=== PATIENT | female | born 1945 | race Caucasian/White ===

== ENCOUNTER 2016-09-29 06:59 | Observation (INO) | payer OTHER ==
--- NOTE | 2016-09-29 07:20 | EDPHY ---
H & P Time Seen by Provider: 09/29/16 07:19 HPI/ROS: CHIEF COMPLAINT: left arm/left leg weakness HISTORY OF PRESENT ILLNESS: Patient is a 71-year-old female status post CVA in 2007 (No blood thinners) that presents to the emergency department with left arm and left leg weakness. The patient thinks her symptoms started at approximately 6:00 a.m.. She initially nose left arm weakness. This slowly progressed to mild left lower extremity weakness. She states it is hard to tell because I was anxious. She took initial aspirin at the onset of her symptoms. She then took a 2nd aspirin. At this time she feels much better. She states her arm and leg numbness has improved. Her leg symptoms have resolved. She does state that her arm feels a little funny. She states she may have had some difficulty with speech but this is resolved. She has no headache or neck pain. Patient reports that she had a large workup for stroke in 2007 but this was done in [place]. They kept in the hospital for 5 days. She had numerous imaging studies. She was told that she had narrowing of the blood vessel in her neck. REVIEW OF SYSTEMS: My complete review of systems is negative except as mentioned in the HPI. Past Medical/Surgical History: Includes CVA. She denies hypertension, high cholesterol diabetes. Social history: The patient does not smoke. She now lives in [place]. Family history: Her father has diabetes and a CVA. Smoking Status: Never smoked Physical Exam: Vitals noted GENERAL: Well-appearing, in no acute distress, alert. HEENT: Eyes normal to inspection, normal pharynx, no signs of dehydration. NECK: No thyromegaly, no lymphadenopathy, supple. RESPIRATORY: Clear to auscultation bilaterally, no rales, rhonchi or wheezing. CVS: Regular rate and rhythm, no rubs, murmurs, or gallops. ABDOMEN: Soft, nontender, nondistended, no organomegaly. BACK: Normal to inspection, no CVA tenderness. SKIN: Normal color, no rash, warm, dry. No pallor. EXTREMITIES: No pedal edema, no calf tenderness, no Homans sign or cords, no joint swelling. NEURO/PSYCH: Higher functions: Alert and Oriented x3. Normal speech and cognition. Normal mood and affect. Cranial nerves: Normal as tested. Cerebellar: Normal as tested. Good finger to nose, good [id number], normal gait. Peripheral exam: Normal motor exam. Normal sensation. Normal reflexes. NIHSS: 0 at 7:25am Constitutional: Initial Vital Signs Temperature (C) 36.3 C 09/29/16 07:03 Heart Rate 102 H 09/29/16 07:03 Respiratory Rate 16 09/29/16 07:03 Blood Pressure 137/105 H 09/29/16 07:03 O2 Sat (%) 97 09/29/16 07:03 O2 Delivery Mode Room Air O2 (L/minute) 2 Allergies/Adverse Reactions: No Known Allergies Allergy (Unverified 09/29/16 07:06) Home Medications: Medication Instructions Recorded Aspirin 81mg (*) 09/29/16 Brimonidine 0.15% 09/29/16 [facility] 09/29/16 Medical Decision Making - Diagnostics EKG Interpretation: EKG shows normal sinus rhythm, at 101, normal axis, normal intervals. There are no ST or T-wave abnormalities. ED Course/Re-evaluation: In the emergency department I discussed possible etiologies with the patient. An IV was placed. Laboratory studies were obtained. I discussed the plan with the patient and answered her questions. I-STAT sodium 139, potassium 4.1, chloride 102, glucose 105, BUN 23, creatinine 0.9, hematocrit 40 741: I was called back into the patient's room because she started to have some slurred speech per the nurse. I re-evaluated the patient. Patient states that she feels as though her tongue is going numb. She has more numbness in her left upper extremity. NEURO/PSYCH: Higher functions: Alert and Oriented x3. Slightly dysarthric. Normal cognition. Normal mood and affect. Cranial nerves: Normal as tested. Cerebellar: Normal as tested. Good finger to nose, good [id number]. Peripheral exam: Normal motor exam. Normal sensation. Normal reflexes. NIHSS: 1 (Mild-Mod dysarthria) Stroke alert called 755: The patient returns from noncontrast CT imaging. I rechecked the patient on return to the emergency department. She states that her arms and tongue are cande numb. No other focal deficits on exam. Awaiting for evaluation by Neurology. 757: Spoke with Dr. Castrejon from Neurology. After discussion evaluated the patient. 810: Received call from Dr. Ayala. CT non-contrast no hemorrhage or acute finding. 813: Pt taken to CT for angio studies. 817: Discussed the case with Dr. Castrejon. He feels the patient is not on a tPA candidate at this time. I agree with this finding. The patient is in CT angiogram. He is aware. I updated the patient has the findings thus far. I answered all her questions. CT angiogram clear please refer the dictated report by Dr. Jesús Ayala. There is no flow present with the proximal right vertebral artery to about C4 level where there appears to be feeling of the mid to distal right vertebral artery presumably from retrograde flow. Differential includes thrombus, dissection, congenital abnormality. There are abnormalities noted. I subsequently paged Neurology. I discussed the case with Dr. Washington. He recommends only aspirin at this point in the emergency department. He recommended MRI without contrast of the brain. Paged the hospitalist service for admission. Differential Diagnosis: My differential includes but is not limited to ischemic CVA, hemorrhagic CVA, dissection, aneurysm, ACS, acute DC, electrolyte abnormality, sugar abnormality - Data Points Laboratory Results: Laboratory Results 09/29/16 07:15 09/29/16 07:47 09/29/16 09/29/16 09/29/16 07:47 07:31 07:15 WBC 6.18 10^3/uL (3.80-9.50) RBC 4.57 10^6/uL (4.18-5.33) Hgb 15.2 g/dL (12.6-16.3) POC Hgb 13.6 gm/dL (12.3-15.9) Hct 43.8 % (38.0-47.0) POC Hct 40 % (35.5-47.5) MCV 95.8 fL (81.5-99.8) MCH 33.3 pg (27.9-34.1) MCHC 34.7 g/dL (32.4-36.7) RDW 12.4 % (11.5-15.2) Plt Count 251 10^3/uL (150-400) MPV 10.4 fL (8.7-11.7) Neut % (Auto) 56.1 % (39.3-74.2) Lymph % (Auto) 36.4 % (15.0-45.0) [place] % (Auto) 6.8 % (4.5-13.0) Eos % (Auto) 0.2 L % (0.6-7.6) Baso % (Auto) 0.2 L % (0.3-1.7) Nucleat RBC Rel Count 0.0 % (0.0-0.2) Absolute Neuts (auto) 3.47 10^3/uL (1.70-6.50) Absolute Lymphs (auto) 2.25 10^3/uL (1.00-3.00) Absolute Monos (auto) 0.42 10^3/uL (0.30-0.80) Absolute Eos (auto) 0.01 L 10^3/uL (0.03-0.40) Absolute Basos (auto) 0.01 L 10^3/uL (0.02-0.10) Absolute Nucleated RBC 0.00 10^3/uL (0-0.01) Immature Gran % 0.3 % (0.0-1.1) Immature Gran # 0.02 10^3/uL (0.00-0.10) PT 12.6 SEC (12.0-15.0) INR 0.95 (0.83-1.16) APTT 30.0 SEC (23.0-38.0) POC Sodium 139 mEq/L (134-144) Sodium 139 mEq/L (134-144) POC Potassium 4.1 mEq/L (3.3-5.0) Potassium 4.4 mEq/L (3.5-5.2) POC Chloride 102 mEq/L (96-108) Chloride 103 mEq/L (97-110) Carbon Dioxide 24 mEq/l (22-31) Anion Gap 12 mEq/L (8-16) POC BUN 23 mg/dL (7-23) BUN 22 mg/dL (7-23) Creatinine 0.9 mg/dL (0.6-1.0) POC Creatinine 0.9 mg/dL (0.6-1.2) Estimated GFR > 60 Glucose 102 H mg/dL (70-100) POC Glucose 105 H mg/dL (70-100) Calcium 10.0 mg/dL (8.5-10.4) Troponin I < 0.012 ng/mL (0-0.034) Point of Care Test Results: 09/29/16 07:31 POC Sodium 139 POC Potassium 4.1 POC Chloride 102 POC BUN 23 POC Creatinine 0.9 POC Glucose 105 H Departure - Departure Disposition: [facility] Acute Clinical Impression: Transient cerebral ischemia Qualifiers: Transient cerebral ischemia type: unspecified Qualifier Code: (G45.9) Transient cerebral ischemic attack, unspecified Condition: Good Referrals: NONE *PRIMARY CARE P,. [Primary Care Provider] - As per Instructions
--- NOTE | 2016-09-29 07:23 | CPEKG ---
Heart Rate: 101 RR Interval: 594 P-R Interval: 140 QRSD Interval: 76 QT Interval: 332 QTC Interval: 431 P Ringling: 75 QRS Ringling: 77 T Wave Ringling: 52 EKG Severity - OTHERWISE NORMAL ECG - EKG Impression: SINUS TACHYCARDIA Electronically Signed By: Ana Wick 29-Sep-2016 14:59:13
[2016-09-29 07:36] LABS: % IMMATURE GRANULYOCYTES 0.3 % (0.0-1.1); ABSOLUTE IMMATURE GRANULOCYTES 0.02 10^3/uL (0.00-0.10); ADD DIFF? NO; ADD MORPH? NO; ADD SCAN? NO; ATYPICAL LYMPHOCYTE FLAG 10 (0-99); FRAGMENT RBC FLAG 0 (0-99); HEMATOCRIT 43.8 % (38.0-47.0); HEMOGLOBIN 15.2 g/dL (12.6-16.3); LEFT SHIFT FLG 0 (0-99); LIPEMIA HEMOLYSIS FLAG 90 (0-99); MEAN CELL HEMOGLOBIN 33.3 pg (27.9-34.1); MEAN CELL HEMOGLOBIN CONCENTR. 34.7 g/dL (32.4-36.7); MEAN CELL VOLUME 95.8 fL (81.5-99.8); MEAN PLATELET VOLUME 10.4 fL (8.7-11.7); PLATELET CLUMPS FLAG 10 (0-99); PLATELET COUNT 251 10^3/uL (150-400); RED BLOOD CELL COUNT 4.57 10^6/uL (4.18-5.33); RED CELL DISTRIBUTION WIDTH 12.4 % (11.5-15.2)
[2016-09-29 07:42] LABS: INR 0.95 (0.83-1.16); PROTIME(PATIENT) 12.6 SEC (12.0-15.0)
[2016-09-29 08:04] LABS: ANION GAP 12 mEq/L (8-16); CARBON DIOXIDE 24 mEq/l (22-31); CHLORIDE 103 mEq/L (97-110); CREATININE 0.9 mg/dL (0.6-1.0); GLOMERULAR FILTRATION RATE > 60; GLUCOSE 102 mg/dL (70-100); POTASSIUM 4.4 mEq/L (3.5-5.2); SODIUM 139 mEq/L (134-144)
[2016-09-29] MEDS ORDERED: IOPAMIDOL (ISOVUE 370) 100 ML BTL IV ONE (08:14)
[2016-09-29 08:15] LABS: TROPONIN I < 0.012 ng/mL (0-0.034)
--- NOTE | 2016-09-29 08:17 | CT ---
CT Brain Without Contrast 0 749 hours History: Slurred speech with left-sided weakness. Stroke alert.. Technique: Axial computed tomographic images of the brain without contrast. Images were reconstruct ed down to 1.25 mm slice thickness. Dose reduction techniques were utilized. Findings: Ventricles, cisterns, and sulci are widened consistent with mild age-related atrophy. No h ydrocephalus, masses, midline shift/herniation, or subdural hematomas. No intraparenchymal hemorrhage or mass effect. Mild hypodensities are seen in the white matter of bilateral cerebral hemispheres. There is no acute peripheral cerebral infarct seen. Arteriosclerotic calcifications are noted associ ated with distal ICA in the parasellar location bilaterally. Bone windows demonstrate no displaced fractures. Air-fluid level is seen right maxillary sinus with mucous retention cyst inferior left maxillary sinu s. There is opacification of ethmoid air cells as well as hypoplastic frontal sinuses. Small amount o f fluid is also noted in the sphenoid sinus. The mastoid air cells are clear. Impression: 1. Mild age-related atrophy. 2. No hemorrhage, mass effect, or definite acute peripheral infarct. 3. Mild to moderate nonspecific hypodensities in the white matter of bilateral frontal and parietal l obes. Differential diagnosis includes microvascular ischemic disease, post-infectious/post-inflammato ry sequela, atypical demyelinating disease, or migraine-related sequela. Small white matter lacunar i nfarcts may also have this appearance. These findings were discussed by telephone with Dr. Ana Wick at 810 hrs.
--- NOTE | 2016-09-29 08:29 | PDCONSULT ---
Glass Checker Note: Telestroke Consult Demographics First Name Sonal Last Name Noun Date of 1945 Age: 71 Gender Female Referring Provider Dr Cardenas Time of return call (): 09/29/2016 07:59 Time Ready to Initiate Telemed Consult (): 09/29/2016 08:01 Consult Type Acute Stroke HPI Chief Complaint: left, numbness Additional History (Free Text): 71 yo woman, history of prior stroke with "stumbling" several years ago on daily aspirin 81 mg. She was awake this AM between 5 and 5:30 am when she felt numbness of the left arm. She was not having weakness or trouble walking. These symptoms improved (NIHSS0 on admit) and then returned in the ED. She has a history of some artery narrowing when evaluated in [facility] previously. Time of onset: 09/29/2016 05:00 Duration wax/wane [facility] Past Medical History: Cerebrovascular Accident, Hypertension Past Surgical History appendectomy, hernia repair Social History: non-smoker, occasional alcohol, no drugs, lives with spouse Medications: aspirin Exam SBP: 125 DBP: 82 Mental Status: awake, alert + oriented x 3, follows commands Language: no aphasia, no dysarthria Cranial Nerves extra ocular movements intact, no facial droop, no dysarthria Motor: normal strength, normal bulk, no drift Sensory: dec sensation L upper extremity Cerebellar: normal cerebellar NIHSS Time (): 09/29/2016 08:01 LOC 1a: 0 = Alert; keenly responsive LOC 1b: 0 = Answers both questions correctly LOC Commands: 0 = Performs both tasks correctly Best Gaze: 0 = Normal Visual: 0 = No visual loss Facial Palsy 0 = Normal symmetrical movements Motor Arm L: 0 = No drift; limb holds 90 (or 45) degrees for full 10 seconds Motor Arm R: 0 = No drift; limb holds 90 (or 45) degrees for full 10 seconds Motor Leg L: 0 = No drift; leg holds 30-degree position for full 5 seconds Motor Leg R: 0 = No drift; leg holds 30-degree position for full 5 seconds Limb Ataxia 0 = Absent Sensory: 1 = [id number] sensory loss; patient feels pinprick is less sharp or is dull on the affected side, but patient is aware of being touched Best Language: 0 = No aphasia; normal Dysarthria: 0 = Normal Extinction + Inattention: 0 = No abnormality NIHSS: [address]: no bleed Assessment: Acute Ischemic Stroke, TIA, left arm numbness, mild symptoms with non-disabling deficit. Event occurred on aspirin therapy. History of possible arterial stenosis by history. Plan Lytic/Intervention: NOT IV or IA candidate Labs Lipid Panel Imaging CTA Head, CTA Neck, MRI brain without Diagnostic test echocardiogram with bubble Medication Plavix 75mg per day Other LDL goal less than 70, permissive HTN, telemetry monitoring, I have discussed my recommendations with the referring provider Disposition observation
--- NOTE | 2016-09-29 09:12 | CT ---
CT Angiogram of the Head and Neck 0820 hours History: Right upper extremity weakness and slurred speech. Stroke alert. Technique: Spiral imaging was obtained from the aortic arch through the skull during the administrati on of 85 mL Isovue-370 IV contrast. The images were reviewed in multiple planes. Volume rendering was performed by me, as well. Dose reduction techniques were utilized. Findings: CT Angiogram Neck: The aortic arch has a normal contour. The great vessels off the aortic arch are no rmal in appearance. The common carotid artery has a normal contour bilaterally. There is a mild amoun t of plaque involving the carotid bulb bilaterally without significant encroachment upon the lumen. T he ECA and ICA are normal without plaque formation or stenosis the left vertebral artery is normal in appearance. There is no flow present within the proximal right vertebral artery to about the C4 leve l where there appears to be filling of the mid to distal right vertebral artery presumably from retro grade flow. Rule out thrombus, dissection, versus less likely congenital anomaly. There is no eviden ce of aneurysm or dissection. Images through the neck demonstrate no significant lymphadenopathy. A few small subcentimeter lymph n odes are seen. The musculature is symmetric. The submandibular glands and parotid glands are normal i n appearance bilaterally. Mild to moderate degenerative disk disease is present mid cervical spine. CT Angiogram [place] [facility] [place]: The distal ICA at the base of the brain has a normal appearance bilate rally without evidence of stenosis. No significant plaque formation is seen. There is normal branchin g into the anterior and middle cerebral arteries. The anterior communicating artery is normal in appe arance. There is no cutoff of flow or evidence of aneurysm. The vertebrobasilar system demonstrates normal contrast enhancement without evidence of stenosis or a neurysm. There is normal branching into the posterior inferior cerebellar artery, as well as the supe rior cerebellar artery. There is a dominant left posterior communicating artery with major contributi on to the left posterior cerebral artery. There is a very tiny T1 segment on the left identified.. Imaging through the brain demonstrates no evidence of intracranial hemorrhage, subdural collection, v ascular malformation, or evidence of cerebral infarction. The venous sinuses are patent. Paranasal si nus disease is once again noted. Impression: 1. Mild amount of calcified plaque at the carotid bulb bilaterally without significant stenosis. 2. No flow within the proximal to mid right vertebral artery with retrograde flow mid to upper right vertebral artery. Rule out thrombus, dissection, versus possibility of congenital small segment. 3. Dominant left posterior communicating artery with major contribution to the left posterior cerebra l artery with small P1 segment on the left. Note: All calculations were performed using NASCET criteria. These findings were discussed by telephone with Dr. Ana Wick at 0900 hrs.
[2016-09-29] MEDS ORDERED: ONDANSETRON DISINTEGRATING 4 MG TAB PO PRN (10:51)
[2016-09-29] MEDS ORDERED: PROMETHAZINE HCL 25 MG/ML INJ IVP PRN (10:51)
[2016-09-29] MEDS ORDERED: ONDANSETRON 4 MG/2 ML VIAL IVP PRN (10:51)
[2016-09-29] MEDS ORDERED: oxyCODONE IR 5 MG TAB PO PRN (10:51)
[2016-09-29] MEDS ORDERED: ACETAMINOPHEN 325 MG TAB PO PRN (10:51)
[2016-09-29] MEDS ORDERED: LORazepam 0.5 MG TAB PO PRN (10:51)
[2016-09-29 12:37] LABS: COLOR YELLOW; LEUKOCYTE ESTERASE,URINE NEGATIVE (NEGATIVE); NITRITE,URINE POSITIVE (NEGATIVE)
[2016-09-29 12:42] LABS: HEMOGLOBIN A1C 5.1 % (4.0-6.0)
--- NOTE | 2016-09-29 13:31 | ECHO ---
[id number] + + [address] : : [place] [address] : : [phone] + Adult Echocardiographic Report + -----+ :Name: YULIANA GIL BStudy Date: 09/29/2016 11:08 AM : : Hospital Admission Number: [id number] Location : 356: :: 1945 Gender: Female Height: 64 in : :Age: 71 yrs Race: WH Weight: 102 lb : :Reason For Study: Ischemic stroke : : BSA: 1.5 meters2 : + -----+ MMode/2D Measurements & Calculations IVSd: 0.69 cm LVIDd: 3.3 cm FS: 52.2 % Ao root diam: 2.9 cm LVPWd: 0.88 cm LVIDs: 1.6 cm EDV(Teich): 44.8 ml LA dimension: 2.6 cm ESV(Teich): 7.0 ml EF(Teich): 84.3 % Normal Measurement Values: + + :LVIDd (3.5-5.7cm) IVSd (0.6-1.1cm) LVPWd (0.6-1.1cm) Aortic Root (2.0-3.7cm)Left Atrium (1.5-4.0cm): :LV Vol(d) (76-115ml) LV Vol(s) (29-48ml) Ejec Fraction (50-65%)PV Chaka (0.6- 1.2m/s) TV Chaka (0.4-1.0m/s) : :MV E Chaka (0.8-1.0m/s)MV A Chaka (0.3-1.0m/s)LVOT Chaka (0.7-1.2m/s) Asc Ao Chaka ( 0.9-1.8m/s) : + + Doppler Measurements & Calculations MV E max chaka: 83.4 cm/sec TR max chaka: 241.6 cm/sec MV A max chaka: 70.1 cm/sec TR max P.4 mmHg MV E/A: 1.2 RAP systole: 5.0 mmHg RVSP(TR): 28.4 mmHg Left Ventricle The left ventricle is normal in size. There is normal left ventricular wall thickness. Left ventricular systolic function is normal. Ejection Fraction = 70-75%. No regional wall motion abnormalities noted. Right Ventricle The right ventricle is normal in size and function. Atria The left atrial size is normal. The right atrium is mildly dilated. Injection of contrast documented no interatrial shunt. Mitral Valve The mitral valve is normal in structure and function. There is no evidence of mitral valve prolapse. There is no mitral valve stenosis. There is mild mitral regurgitation. Tricuspid Valve Normal tricuspid valve. Right ventricular systolic pressure is normal. There is mild to moderate tricuspid regurgitation. Aortic Valve The aortic valve is trileaflet. The aortic valve opens well. There is no aortic stenosis. There is no aortic insufficiency. Pulmonic Valve The pulmonic valve is not well visualized. There is no pulmonic valvular regurgitation. Great Vessels The aortic root is normal size. Pericardium/Pleural There is no pericardial effusion. Fat pad near RV apex. Conclusion A complete two-dimensional transthoracic echocardiogram was performed (2D, M-mode, Doppler and color flow Doppler). Left ventricular systolic function is normal. Ejection Fraction = 70-75%. The right atrium is mildly dilated. Injection of contrast documented no interatrial shunt. There is mild mitral regurgitation. There is mild to moderate tricuspid regurgitation. Right ventricular systolic pressure is normal. Fat pad near RV apex. Final Reading Physician: Rhonda Pederson signed on 09/29/2016 01:30 PM Ordering Physician: Sanket Lagunas Performed By: Andie Davila, ABDI
[2016-09-29] MEDS ORDERED: TIMOLOL EACHEYE SCH (14:00)
--- NOTE | 2016-09-29 15:32 | PDCONSULT ---
[employer] Note: HOSPITAL NEUROLOGY CONSULT REQUESTING: Sanket Lagunas MD REASON: TIA HPI: This is a 71-year-old right-handed woman with a history of prior stroke/TIA who presented to our facility today due to abrupt onset left arm and leg numbness. Patient states she arose very early in the morning, perhaps around 5:00 a.m.. Around 6:00 a.m. when she was getting ready for the day, she noted abrupt onset left arm numbness. She thought she was having a heart attack and took an extra baby aspirin. she states within a couple minutes the numbness progressed to her left leg. She denied any weakness, though found the left arm and leg difficult to maneuver because of the numb feeling. She states she was able lift objects with the left arm when she was moving about the house. She states all in all, the left-sided numbness persisted for about 20 minutes and resolved. She summoned a taxi to take her to our emergency department. In the emergency department, the patient states her left arm numbness had returned to a lesser degree and she was also feeling numbness in her tongue. This had resolved shortly after onset. A code stroke was called and the patient was evaluated by tele stroke colleagues and she was not deemed an IV t-PA candidate due to minor symptoms that had resolved. During today's events, the patient denied any visual disturbance, language disturbance, headache, fever. She had no chest pain, palpitations or shortness breath. Her investigations to date have showed positive nitrates in her urine and some red blood cells, but the patient denies any dysuria, urinary frequency or urgency or suprapubic tenderness/pain. With regards to her prior history of stroke/TIA, the patient states this occurred in 2007 when she was walking her dog and had abrupt onset buckling of her knees which brought her to the ground. She could not get up from that fall. She was taken to a hospital where she underwent testing for 5 days as an inpatient. Patient states she had a stroke and TIA, though cannot specifically identify which one was culprit. ROS: As per the HPI, otherwise a complete 12 point ROS was performed and is negative ALLERGIES AND MEDS: As recorded in the EMR - reviewed and reconciled PFSH: As per the intake H&P by Dr. Lagunas from today EXAM: GEN: cachectic, laying in NAD HEENT: NCAT, sclera anicteric, conjunctiva not injected, MMM, oropharynx clear, no scalp tenderness NECK: supple, nontender, no meningismus CV: RRR s1 s2 wo m/r/c/g. Carotid pulses 2+ wo bruit NEURO: NIHSS 0 MS: awake, alert, oriented to all spheres. Speech nondysarthric. No language disturbance. Follows commands. Attends to both sides. Recent/remote memory grossly intact. Mood euthymic. Good fund of knowledge. CN: pupils 3mm round and reactive. Fundi with sharp discs. VFF. Primary gaze centered. Full ocular motility. Facial sensation preserved. Face symmetric. Hearing grossly intact. Palatoglossal movements intact. Shoulder shrug and head turn strong. MOTOR: normal bulk/tone. No adventitial movements. Full power throughout. SENSORY: intact to all modalities throughout. No extinction. COORD: no ataxia FN/HS. Oswaldo preserved. Romberg neg. REFLEX: plantars down. No clonus. Absent ankle jerks, rest of DTRS 1/4. GAIT: rises unassisted. Narrow base. Intact stride length/heel strike/toe lift /arm swing. Turns with 2 steps. DATA REVIEW: Labs reviewed in EMR TTE - preserved EF, no shunt/mass/thrombus A1c 5.1 LDL pending PERSONALLY INTERPRETED RESULTS AND DATA: CT head wo - some mild global volume loss, some subcortical white matter hypodensities which likely reflect chronic microvascular ischemic change. Nothing acute. CTA head/neck - mild carotid bulb plaque, otherwise BICAs patent. Right vertebral artery from origin to level of C4 has no flow, but distal retrograde flow. COW patent. IMPRESSION AND RECOMMENDATIONS: // TRANSIENT LUE/LLE NUMBNESS Patient with episode of transient left arm and leg numbness which certainly could represent a transient ischemic attack involving the right hemisphere. Semiology seems lacunar in localization. She has an unremarkable CT angiogram, with the exception of the right vertebral artery lacking flow from the origin to around C4 level-I doubt this is clinically significant as she has good retrograde flow into the intracranial segments and a patent habematolel [place]. There is slight change she may be having a urinary tract infection that is manifesting as recrudescence of an old area of ischemia, but she is asymptomatic from a genitourinary prospective which makes this less likely. For now, I would continue to optimize her cerebrovascular risk factors and continue workup of possible TIA/stroke. - MRI brain wo - increase ASA to 325mg daily - goal normotension - adjust statin for LDL < 70 - cont goal normoglycemia - A1c at goal < 6.5 - stroke education - PT/OT/WIRE INSULATOR consults - metabolic/infectious workup and supportive measures per primary team - delirium precautions
[2016-09-29] MEDS ORDERED: LORazepam 2 MG/ML INJ IVP ONE (16:12)
--- NOTE | 2016-09-29 16:50 | GHP ---
[f rep st] HISTORY AND PHYSICAL DATE OF ADMISSION: 09/29/2016 CHIEF COMPLAINT: Left-sided weakness. HISTORY: This is a 71-year-old female, who has a past medical history of a stroke in 2007 that occur red in [place], with no residual deficits. She presents with a brief episode of left arm and leg num bness and weakness. She notes it began in her left arm, and was mostly notable for numbness, which s he thought was concerning for a heart attack. She did not have any chest pain at that time. The lef t arm sensation of numbness then proceeded to go down her leg. In all, this entire episode lasted le ss than an hour. She presented to the ER and already her symptoms had resolved. In discussion with her about her stroke that occurred in 2007, she really can't remember what her sym ptoms were. She just remembers that she fell down. She, otherwise, has not had any health complaint s. She denies any fevers or chills. She denies any urinary issues. She has had no recent upper res piratory symptoms or cough. PAST MEDICAL HISTORY: 1. Includes CVA in 2007. 2. Low pressure glaucoma. SURGICAL HISTORY: 1. Hernia repair. 2. Appendectomy. FAMILY HISTORY: Mother had a stroke in her 50s. SOCIAL HISTORY: Patient has remote history of smoking very briefly. She drinks red wine daily. She works in real estate, buying and selling houses. She is . REVIEW OF SYSTEMS: A 10-point review of systems obtained and negative, except as per HPI. USUAL MEDICATIONS: 1. Brimonidine. 2. Ibuprofen. 3. Aspirin. 4. Timolol. ALLERGIES: No known drug allergies. PHYSICAL EXAMINATION: VITAL SIGNS: BP 95/58, heart rate 89, respiratory rate 16, O2 sats 100% on ro om air. Temperature 36.5. GENERAL APPEARANCE: This is a well-developed/well-nourished female she i s awake and alert. She is in no acute distress. EYES: Anicteric, EOMI. HEENT: Oropharynx clear, MMM. CARDIOVASCULAR: RRR. No MRG. PULMONARY: CTA bilaterally. Normal work of breathing. ABDOME N: Soft, nontender. Positive bowel sounds. EXTREMITIES: No clubbing, cyanosis, or edema. SKIN: Warm, dry, well-perfused. NEURO/PSYCHIATRIC: Patient is oriented, cranial nerves are intact, strength and sensation is symmetr ical. CLINICAL DATA: Labs reviewed. CBC is unremarkable. Coagulation studies are normal. Chemistry is n otable only for a glucose of 105. Urinalysis shows 1+ blood, but otherwise unremarkable, as well. Head CT, reviewed and interpreted independently by myself, is showing nothing acute. Head and neck CT angiogram showed no significant stenoses or vascular malformations other than a righ t vertebral artery showing no flow within the [id number] area, but retrograde flow is present. Echocardiogram with a normal ejection fraction. No intra-arterial shunt. No significant valvular di sease. EKG, reviewed and interpreted independently by myself, shows sinus tachycardia without ischemic dietrich es. ASSESSMENT/PLAN: This is a 71-year-old female, past medical history of cerebrovascular accident pres enting with an episode of left arm and leg weakness consistent with transient ischemic attack. 1. Transient ischemic attack: Thus far workup unremarkable other than a right vertebral artery show ing poor flow, but good retrograde flow, thought to be likely insignificant by Neurology. Lipid pane l, and hemoglobin A1c will be performed. Brain MRI has been ordered and is pending. Echocardiogram unremarkable. She will be monitored overnight on telemetry. Neurology has been consulted. Jairo te their recommendations. 2. History of cerebrovascular accident: The patient does not recall what her presenting symptoms we re, but denies any residual deficits. This could be masking of her prior stroke symptoms in the sett ing of some sort of occult infection, though this seems less likely. We will continue to monitor. 3. Hematuria without evidence of infection on UA: Uncertain etiology; but recommend that she have a repeat urinalysis with her primary care physician in the coming weeks to ensure that this is not rep resentative of something ongoing. 4. Glaucoma: Continue her outpatient medications. DISPOSITION: Observation status. I suspect she will need less than 48 hours stay for evaluation and management of above. Patient is new to my care. Old records reviewed, summarized, as per HPI and past medical history. C are plan reviewed with ER physician, including plans for Neurology consult and overnight observation. Further history obtained from patient's daughter on the telephone. /[id number]/MODL
[2016-09-29] MEDS: BRIMONIDINE 0.15% 5 ML OPHT.BTL EACHEYE SCH (17:58)
[2016-09-30 06:53] LABS: ANION GAP 11 mEq/L (8-16); CALCIUM 9.5 mg/dL (8.5-10.4); CARBON DIOXIDE 22 mEq/l (22-31); CHLORIDE 105 mEq/L (97-110); CHOLESTEROL 204 mg/dL (140-220); CHOLESTEROL/HDL RATIO 3.85 RATIO (1.00-4.44); CREATININE 0.8 mg/dL (0.6-1.0); GLOMERULAR FILTRATION RATE > 60; GLUCOSE 79 mg/dL (70-100); HIGH DENSITY LIPOPROTEIN 53 mg/dL (40-85); LDL/HDL RATIO 2.13 RATIO (1.00-3.22); LOW DENSITY LIPOPROTEIN 113 mg/dL (80-100); NON-HIGH DENSITY LIPOPROTEIN 151 mg/dL (90-129); POTASSIUM 4.3 mEq/L (3.5-5.2); SODIUM 138 mEq/L (134-144); TRIGLYCERIDE 194 mg/dL (35-135); VERY LOW DENSITY LIPOPROTEINS 38 mg/dL (8-25)
[2016-09-30 06:54] LABS: % IMMATURE GRANULYOCYTES 0.3 % (0.0-1.1); ABSOLUTE IMMATURE GRANULOCYTES 0.01 10^3/uL (0.00-0.10); ADD DIFF? NO; ADD MORPH? NO; ADD SCAN? NO; ATYPICAL LYMPHOCYTE FLAG 0 (0-99); FRAGMENT RBC FLAG 10 (0-99); HEMATOCRIT 40.6 % (38.0-47.0); HEMOGLOBIN 14.1 g/dL (12.6-16.3); LEFT SHIFT FLG 0 (0-99); LIPEMIA HEMOLYSIS FLAG 90 (0-99); MEAN CELL HEMOGLOBIN 32.9 pg (27.9-34.1); MEAN CELL HEMOGLOBIN CONCENTR. 34.7 g/dL (32.4-36.7); MEAN CELL VOLUME 94.6 fL (81.5-99.8); MEAN PLATELET VOLUME 10.3 fL (8.7-11.7); PLATELET CLUMPS FLAG 10 (0-99); PLATELET COUNT 204 10^3/uL (150-400); RED BLOOD CELL COUNT 4.29 10^6/uL (4.18-5.33); RED CELL DISTRIBUTION WIDTH 12.3 % (11.5-15.2)
[2016-09-30] MEDS: BRIMONIDINE 0.15% 5 ML OPHT.BTL EACHEYE SCH (07:23)
[2016-09-30 08:11] VITALS: O2SAT 96
[2016-09-30] MEDS ORDERED: LORazepam 2 MG/ML INJ ONE (08:51)
[2016-09-30] MEDS ORDERED: ASPIRIN 81 MG CHEWABLE TAB PO SCH (09:00)
[2016-09-30] MEDS ORDERED: ENOXAPARIN 40 MG/0.4 ML SYR SC SCH (09:00)
--- NOTE | 2016-09-30 10:15 | NEUROPROG ---
Assessment: Patient was not in her room during my rounds this morning. MRI brain wo was reviewed - some scattered punctate areas of T2 FLAIR hyperintensity in the subcortical/periventricular white matter consistent with chronic microvascular ischemic change. I don't see any chronic infarct. Posterior circulation territory is without any abnormality. She may have had a TIA - given history, would continue to optimize vascular risk factors as outlined in my initial consultation. She can continue to work with her PCP for vascular risk factor surveillance and optimization. OK for discharge from a neurologic perspective. No charge for visit, as patient was not seen. Objective: Vital Signs Temp Pulse Resp BP Pulse Ox 36.7 C 72 16 99/64 L 96 09/30/16 08:09 09/30/16 08:09 09/30/16 08:09 09/30/16 08:09 09/30/16 08:09 Laboratory Results 09/30/16 05:23 09/30/16 05:23 09/29/16 09/30/16 10/01/16 05:59 05:59 05:59 Intake Total 450 Balance 450 PT 12.6 SEC (12.0-15.0) 09/29/16 07:15 INR 0.95 (0.83-1.16) 09/29/16 07:15 Allergies/Adverse Reactions: No Known Allergies Allergy (Unverified 09/29/16 07:06)
--- NOTE | 2016-09-30 10:39 | CPEKG ---
Heart Rate: 104 RR Interval: 577 P-R Interval: 140 QRSD Interval: 78 QT Interval: 332 QTC Interval: 437 P Cobden: 38 QRS [place]den: 76 T Wave Cobden: 63 EKG Severity - OTHERWISE NORMAL ECG - EKG Impression: SINUS TACHYCARDIA Electronically Signed By: Mike Baker 30-Sep-2016 22:58:32
[2016-09-30 11:28] VITALS: BP 104/60; PULSE 97; RESP 13; TEMP 97.9
--- NOTE | 2016-09-30 11:50 | PDDCSUM ---
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 vascular dementia or other etiology for subacute cognitive decline with personality changed noted by family. Per their report this has been progressive since her cva in 2007. Recommended cognitive eval and f/u with neuro but IP w/u unrevealing Dispo: dc home f/u with neuro and establish care with a pcp Meds: see EHR
== END 2016-09-30 13:00 | disposition home or self-care (01) ==
LOC: F3N 10:11
PROVIDERS: ADMIT Internal Medicine; ATTEND Internal Medicine
DX: G45.9 Transient cerebral ischemic attack, unspecified (principal); F03.90 Unspecified dementia, unspecified severity, without behavioral disturbance, psychotic disturbance, mood disturbance, and anxiety; H40.9 Unspecified glaucoma; Z86.73 Personal history of transient ischemic attack (TIA), and cerebral infarction without residual deficits; R31.9 Hematuria, unspecified
CPT/HCPCS: 70551; 92610; 93005; 97161; 97166; 99285; G0378; G8978; G8979; G8980; G8987; G8988; G8989; G8996; G8997; G8998; Q9967; 82947-QW; 92523-GN; G9165-GN-CJ; G9166-GN-CI; J1650

== ENCOUNTER 2016-09-30 20:58 | Observation (INO) | payer OTHER ==
--- NOTE | 2016-09-30 21:19 | CPEKG ---
Heart Rate: 97 RR Interval: 619 P-R Interval: 144 QRSD Interval: 82 QT Interval: 352 QTC Interval: 447 P [place]on: 54 QRS [place]: 73 T Wave [place]: 71 EKG Severity - BORDERLINE ECG - EKG Impression: SINUS RHYTHM EKG Impression: PROBABLE LEFT ATRIAL ABNORMALITY Electronically Signed By: Mike Baker 30-Sep-2016 22:58:19
--- NOTE | 2016-09-30 21:23 | EDPHY ---
H & P Time Seen by Provider: 09/30/16 21:23 HPI/ROS: CHIEF COMPLAINT: Left-sided weakness and numbness HISTORY OF PRESENT ILLNESS: The patient was admitted yesterday for left-sided weakness. She left today and tells me that at 8:30 p.m. she was numb and weak on her left side and could not lift her arm up off the bed and symptoms lasted about 30 minutes associated with some slurred speech and then completely resolved. Not associated with headache or chest pain or visual symptoms. REVIEW OF SYSTEMS: Eye: no change in vision ENT: no sore throat Cardiac: no chest pain or syncope Pulmonary: no cough or SOB Abdomen: no vomiting, diarrhea, abdominal pain Musculoskeletal: no back pain Skin: no rash Neuro: no headache Constitutional: no fever : no urinary symptoms A comprehensive 10 point review of systems is otherwise negative aside from elements mentioned in the history of present illness. PAST MEDICAL HISTORY: Hernia repair, appendectomy, stroke in 2007, low- pressure glaucoma. Social history: Nonsmoker but drinks wine General Appearance: Alert and conversant, cooperative. Eyes: No scleral icterus. ENT, Mouth: Normal mucous membranes. Respiratory: Normal respiratory effort, breath sounds equal, lungs are clear to auscultation. Cardiovascular: Regular rate and rhythm. Gastrointestinal: Abdomen is soft and non tender. Neurological: Alert and oriented x3. Normally conversant. Face symmetric, normal movement and sensation in all extremities. No pronator drift and normal [id number] bilaterally. Can lift each leg off the bed independently and toes downgoing. Speech is fluent. Skin: Warm and dry, no rashes. Musculoskeletal: No peripheral edema and no joint swelling. Psychiatric: Not agitated. Emergency Department course/MDM: Does not meet criteria for a stroke alert as symptoms have 100% resolved. The neurology note from Dr. Washington dated today at 10:12 a.m. personally reviewed by myself. She had an MRI brain that showed some chronic microvascular ischemic change. 2211: Discussed with Marlon Coello, [place] neurology re-admit and repeat MRI tomorrow. Neurology recommendation discussed with the patient. She is placed back on cardiac care unit nurse. Agreeable to readmission. Smoking Status: Never smoked Constitutional: Initial Vital Signs Temperature (C) 36.5 C 09/30/16 21:00 Heart Rate 98 09/30/16 21:00 Respiratory Rate 18 09/30/16 21:00 Blood Pressure 119/75 09/30/16 21:00 O2 Sat (%) 96 09/30/16 21:00 O2 Delivery Mode Room Air Allergies/Adverse Reactions: No Known Allergies Allergy (Unverified 09/30/16 21:22) Home Medications: Medication Instructions Recorded Aspirin [Aspirin 81mg (*)] 81 mg PO HS 09/29/16 Ibuprofen [Motrin (*)] 200 mg PO BID@,09/29/[address] Unk 1 drop EACHEYE DAILY14 09/29/16 Acetaminophen [Tylenol 325mg (*)] 650 mg PO Q4HRS PRN #0 tab 09/30/16 Brimonidine 0.15% [Alphagan P 1 drops EACHEYE BID@ #0 09/30/16 0.15%] [email or web address] Medical Decision Making - Diagnostics EKG Interpretation: 12-lead EKG interpreted by me; official reading is in trace master. My interpretation is rate 97, sinus rhythm with left atrial abnormality. Imaging: Head CT negative per Tj, no bleed or other acute abnormality. Differential Diagnosis: Differential considered including but not limited to seizure, intracranial bleed , ischemic stroke, intracranial mass, dissection. Consult/Admit Bed Type: [place] [id number] - Data Points Laboratory Results: Laboratory Results 09/30/16 21:20 09/30/16 21:20 09/30/16 09/30/16 09/30/16 21:39 21:20 21:20 WBC RBC Hgb Hct MCV MCH MCHC RDW Plt Count MPV Neut % (Auto) Lymph % (Auto) [place] % (Auto) Eos % (Auto) Baso % (Auto) Nucleat RBC Rel Count Absolute Neuts (auto) Absolute Lymphs (auto) Absolute Monos (auto) Absolute Eos (auto) Absolute Basos (auto) Absolute Nucleated RBC Immature Gran % Immature Gran # PT 12.9 SEC SEC (12.0-15.0) INR 0.98 (0.83-1.16) Sodium 138 mEq/L mEq/L (134-144) Potassium 4.3 mEq/L mEq/L (3.5-5.2) Chloride 104 mEq/L mEq/L (97-110) Carbon Dioxide 20 mEq/l L mEq/l (22-31) Anion Gap 14 mEq/L mEq/L (8-16) BUN 25 mg/dL H mg/dL (7-23) Creatinine 0.9 mg/dL mg/dL (0.6-1.0) Estimated GFR > 60 Glucose 117 mg/dL H mg/dL (70-100) Calcium 9.7 mg/dL mg/dL (8.5-10.4) Troponin I 0.022 ng/mL ng/mL (0-0.034) Specimen Hemolysis 120 Ethyl Alcohol 45 mg/dL H mg/dL (0-10) 09/30/16 21:20 WBC 6.39 10^3/uL 10^3/uL (3.80-9.50) RBC 4.57 10^6/uL 10^6/uL (4.18-5.33) Hgb 14.9 g/dL g/dL (12.6-16.3) Hct 43.0 % % (38.0-47.0) MCV 94.1 fL fL (81.5-99.8) MCH 32.6 pg pg (27.9-34.1) MCHC 34.7 g/dL g/dL (32.4-36.7) RDW 12.5 % % (11.5-15.2) Plt Count 235 10^3/uL 10^3/uL (150-400) MPV 10.3 fL fL (8.7-11.7) Neut % (Auto) 67.9 % % (39.3-74.2) Lymph % (Auto) 25.0 % % (15.0-45.0) [place] % (Auto) 6.1 % % (4.5-13.0) Eos % (Auto) 0.5 % L % (0.6-7.6) Baso % (Auto) 0.3 % % (0.3-1.7) Nucleat RBC Rel Count 0.0 % % (0.0-0.2) Absolute Neuts (auto) 4.34 10^3/uL 10^3/uL (1.70-6.50) Absolute Lymphs (auto) 1.60 10^3/uL 10^3/uL (1.00-3.00) Absolute Monos (auto) 0.39 10^3/uL 10^3/uL (0.30-0.80) Absolute Eos (auto) 0.03 10^3/uL 10^3/uL (0.03-0.40) Absolute Basos (auto) 0.02 10^3/uL 10^3/uL (0.02-0.10) Absolute Nucleated RBC 0.00 10^3/uL 10^3/uL (0-0.01) Immature Gran % 0.2 % % (0.0-1.1) Immature Gran # 0.01 10^3/uL 10^3/uL (0.00-0.10) PT INR Sodium Potassium Chloride Carbon Dioxide Anion Gap BUN Creatinine Estimated GFR Glucose Calcium Troponin I Specimen Hemolysis Ethyl Alcohol Departure - Departure Disposition: [facility] Inpatient Acute Clinical Impression: TIA (transient ischemic attack) Qualifiers: Transient cerebral ischemia type: unspecified Qualified Code(s): G45.9 - Transient cerebral ischemic attack, unspecified Condition: Good
[2016-09-30 21:37] LABS: % IMMATURE GRANULYOCYTES 0.2 % (0.0-1.1); ABSOLUTE IMMATURE GRANULOCYTES 0.01 10^3/uL (0.00-0.10); ADD DIFF? NO; ADD MORPH? NO; ADD SCAN? NO; ATYPICAL LYMPHOCYTE FLAG 10 (0-99); FRAGMENT RBC FLAG 0 (0-99); HEMOGLOBIN 14.9 g/dL (12.6-16.3); LEFT SHIFT FLG 0 (0-99); LIPEMIA HEMOLYSIS FLAG 90 (0-99); MEAN CELL HEMOGLOBIN 32.6 pg (27.9-34.1); MEAN CELL HEMOGLOBIN CONCENTR. 34.7 g/dL (32.4-36.7); MEAN CELL VOLUME 94.1 fL (81.5-99.8); MEAN PLATELET VOLUME 10.3 fL (8.7-11.7); PLATELET CLUMPS FLAG 0 (0-99); PLATELET COUNT 235 10^3/uL (150-400); RED BLOOD CELL COUNT 4.57 10^6/uL (4.18-5.33); RED CELL DISTRIBUTION WIDTH 12.5 % (11.5-15.2)
[2016-09-30 21:48] LABS: ANION GAP 14 mEq/L (8-16); CALCIUM 9.7 mg/dL (8.5-10.4); CARBON DIOXIDE 20 mEq/l (22-31); CHLORIDE 104 mEq/L (97-110); CREATININE 0.9 mg/dL (0.6-1.0); GLOMERULAR FILTRATION RATE > 60; GLUCOSE 117 mg/dL (70-100); POTASSIUM 4.3 mEq/L (3.5-5.2); SODIUM 138 mEq/L (134-144)
[2016-09-30 21:53] LABS: INR 0.98 (0.83-1.16); PROTIME(PATIENT) 12.9 SEC (12.0-15.0)
[2016-09-30 22:00] LABS: TROPONIN I 0.022 ng/mL (0-0.034)
[2016-09-30 22:16] LABS: ETHANOL SERUM 45 mg/dL (0-10); SPECIMEN HEMOLYSIS 120
[2016-09-30 22:50] VITALS: RESP 16
[2016-10-01] MEDS: ASPIRIN 325 MG TAB PO SCH ×2 (00:58→08:10)
--- NOTE | 2016-10-01 02:02 | GHP ---
[f rep st] HISTORY AND PHYSICAL DATE OF ADMISSION: 09/30/2016 CHIEF COMPLAINT: Left arm numbness and weakness. HISTORY OF PRESENT ILLNESS: This is a 71-year-old female who was just discharged this morning. Yes terday morning, she was a stroke alert with symptoms of left arm and leg numbness as well as weaknes s. Symptoms already lasted 15 to 30 minutes. She underwent CTA of the head and neck, which did katja w an occlusion within the mid right vertebral artery, with retrograde flow, and the patient also had a brain MRI the following day, which did not show any new CVAs. She was then discharged, and later this evening had an episode again, that lasted about 15 minutes, of left arm numbness, and she says that it felt weak. Has also had some possible slurred speech and cognitive difficulties for about 20 minutes. These symptoms all resolved now. She has not had any fevers or chills. She did have 2 episodes of headache last week, which were new for her, which she was piercing but only lasted 15 t o 20 minutes. REVIEW OF SYSTEMS: A 10-point review of systems was obtained and other than HPI was negative. PAST MEDICAL HISTORY: 1. Questionable history of CVA versus TIA in 2007. She was hospitalized in [place] at the [facility]. 2. Low pressure glaucoma. PAST SURGICAL HISTORY: 1. Hernia repair. 2. Appendectomy. FAMILY HISTORY: Mother had a stroke in her 50s. SOCIAL HISTORY: Does not smoke, but does use Nicorette. She does drink 1 to 2 drinks of red wine d aily. She works in real estate and is . PHYSICAL EXAM: VITAL SIGNS: Afebrile. Blood pressure is 125/69, heart rate 99, oxygen saturation 95% on room air. GENERAL: The patient is thin but in no apparent distress. HEENT: Nonicteric scl erae. Extraocular movements intact. Moist mucous membranes. NECK: Supple. No thyromegaly. LUNG S: Good effort. Clear anteriorly. CARDIOVASCULAR: Regular rate and rhythm. No murmurs or gallop s. ABDOMEN: Positive bowel sounds. Soft, nontender, nondistended. No hepatosplenomegaly. EXTREM ITIES: No clubbing, cyanosis, or edema. SKIN: Without rash. Dry, intact. NEUROLOGIC: Alert and oriented x3. Cranial nerves 2 through 12 are intact. 5/5 strength in all 4 extremities. No prona tor drift. PSYCH: Normal mood and affect. LABS: CBC is normal. Chemistry is normal. Troponin 0.022. UA does show positive nitrates. EKG pe rsonally reviewed and interpreted shows normal sinus rhythm. Some ST-segment elevations anteriorly which appears J-point in elevation. Head CT negative. ASSESSMENT: A 71-year-old female who presents with intermittent episodes of left arm numbness. PLAN: Symptoms are a little bit unusual for TIAs, in that it is not lasting very long and has a neg ative CTA. She initially came to the hospital yesterday because she was concerned about a heart att ack. Troponin is slightly above what it was yesterday. I suppose she could be having coronary symp toms. Otherwise, these could be TIAs as well. Plan will be to monitor her on telemetry. I will cy velvet the troponin in the morning. Consider stress testing as well. Will have Neurology see again in the morning. In the meantime, will have an aspirin. She is completely asymptomatic in terms of ne urological symptoms or chest pressure at this time. /[id number]/MODL
[2016-10-01 07:58] VITALS: BP 124/60; PULSE 98; O2SAT 97
[2016-10-01 08:09] VITALS: TEMP 98
[2016-10-01] MEDS ORDERED: ASPIRIN/DIPYRIDAMOLE CAPSULE PO SCH (09:00)
[2016-10-01] MEDS ORDERED: BRIMONIDINE 0.15% 5 ML OPHT.BTL EACHEYE SCH (17:00)
--- NOTE | 2016-10-01 20:15 | GCON ---
[f rep st] CONSULTATION NEUROLOGIC CONSULTATION REFERRING PHYSICIAN: Ayaka Moreno MD HISTORY: The patient is a 71-year-old woman, whom I am asked to see in neurologic consultation caleb ng a series of events that have occurred over the last 48 hours with neurologic symptoms consiste nt with TIA. She is able to provide a reasonable history, but I can get further details from her hu sband, as well as son because she sometimes gets a little confused on the details. She first presen laine to the emergency room on September 29 with complaints of left arm and left leg weakness. She h ad reported that in 2007, she experienced problems in [place] and believes it was either a stroke or a TIA, but does not recall having numbness at that time. The exact details of that are unclear, bu t she said ever since then, she has had a little bit of trouble with balance. When she came to the hospital on the , symptoms had started around 6 in the morning and it was in the arm and then se emed to go in the leg. She took aspirin because she knew that there was a possibility of having str lopez. Symptoms improved by the time she got to the emergency room and the leg symptoms had resolved. The arm did not feel completely normal, and she had some slurring of speech that her son was able to confirm when he had spoken to her on the phone. Her NIH stroke scale was documented 0 at that ti me. She went through further evaluation in the emergency department and head CT did not show any ac [place] pathology. By 7:55 a.m., she was having more symptoms again, and she was consulted from [facility]. She had CT angiogram obtained and there was evidence of a possible right vertebral occ lusion, which the patient had said she believes was known in 2007 and it did have the appearance of something more or less chronic at about the C4 level. She was not thought to be a tPA candidate bas ed on the lack of significant deficits which again, had resolved. During that hospitalization, she had brain MRI that did not show any evidence of an acute stroke. She had unremarkable echocardiogra m and CT angiogram as outlined, and was discharged home with a plan for aspirin therapy. She came to the hospital again yesterday, when she presented to the emergency department and saw Dr. Mike Baker. It was at 8:30 p.m. he documented she was having numbness and weakness on her left side , and could not lift the arm off the bed very well and it lasted about 30 minutes, and had some spee ch slurring that also completely resolved fairly quickly. He documented that she was alert and orie nted, and did not see any measurable deficits. He discussed the case with Dr. Washington and also Dr. Coello. She was readmitted to the hospital. 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 A repeat head CT has not shown any new pathology. Her laboratory studies have shown an LDL cholesterol of 113 and HDL of 53. She has remained stable since hospitalization with resolution of her deficits at this point. She is not having any headach e. REVIEW OF SYSTEMS: Ten-point review of systems is completed and unremarkable, except for that noted above. There is some mention from her son that there has been a bit of a slow decline in some of h er cognitive skills. For example, her higher level functioning and complex games has dropped off, a lthough she remains very active and able to do most activities. It is a change that they say has be en noticed, although not dramatic. When she came in on the , she did have a mild elevation of alcohol level of 45. Otherwise, unre markable electrolytes. INR was normal. CBC was normal. PAST MEDICAL HISTORY: As outlined above, otherwise low pressure glaucoma. SOCIAL HISTORY: No smoking, but used Nicorette. One or 2 drinks of red wine a day. 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 FAMILY HISTORY: Stroke in her mother in her 50s. ALLERGIES: No known drug allergies. MEDICATIONS: Currently, she is on the Aggrenox, aspirin, and Alphagan eyedrops. PHYSICAL EXAM: VITAL SIGNS: Blood pressure 124/60, pulse of 98, respirations 16, temperature 36.6. GENERAL: She is a small-framed individual, but who appears healthy, in no acute distress. EYES: Clear. NECK: Supple with no bruits or masses. CARDIAC: Regular rate and rhythm with no murmur. EXTREMITIES: No cyanosis or edema. NEUROLOGIC: She is alert and oriented to person, place, and t saul. Remote memory is fairly well maintained. Some of the details of the more recent events are fa irly good, although some of the finer details, she needs a little assistance with. Concentration an d attention are normal. Her general fund of knowledge seems good. No word-finding problems. Pupil s are 2 mm and reactive. I cannot view the fundi, but no visual field loss. Extraocular movements are intact. Normal facial sensation and strength. Palate elevates symmetrically. Tongue protrudes midline. Hearing is preserved. No weakness with head turning or shoulder shrug. Motor exam: Nor mal muscle bulk and tone with 5/5 strength and no abnormal movements. Rapid alternating movements a re preserved bilaterally. Sensation is preserved for temperature and light touch. Reflexes are 1+. No Babinski signs. No ataxia on [id number]. Her gait is independent and relatively steady, a lthough she subjectively says this is not quite her normal balance, but her family says she looks ab out the same as she is walking. Slightly narrowed stance and has just slight imbalance, but does no t lose her balance at all. IMPRESSION: The patient has experienced a series of probable transient ischemic attacks over the la st 48 hours. The concern is that this is probably a small-vessel phenomenon with variable occlusive or preocclusive state, and we are trying to optimize function by antiplatelet therapy and hydration , and then will plan to add a statin therapy for secondary stroke prophylaxis. 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 She had an echocardiogram that did not show any embolic s ource. I doubt this is an embolic phenomenon. I do not think she needs more prolonged cardiac cruz toring at this point. She may very well have some mild cognitive problems and we need to explore th at in more detail later, but that is something to do as an outpatient as she recovers from this. I had a detailed discussion with the patient and her son and , as well as her daughter, who is a physician's assistant financial accountant who was on the telephone in [place]. We reviewed the rationale for ou r approach to this, and talked about the differential diagnosis and other considerations, but I just do not think this is likely related to a migraine phenomena or seizure, which are the only other po tential explanations. If she cannot tolerate Aggrenox because of capsules, then we would change phyllis t to Plavix if necessary but for now, we will continue that. I will start her on Lipitor 40 mg in t he evening. We talked about the risks of the medications. I would like her to come to see me in e office in a few weeks to update how she is doing. I also told her she needs to establish with a [facility] care provider given her general condition and challenges that might arise. She says she will do that. The patient was advised on the importance of coming to the hospital via rescue squad immediately if necessary should there be recurrence of symptoms so we can decide about ever intervening with someth ing like tPA should she have a fixed deficit. /[id number]/MODL
--- NOTE | 2016-10-01 23:00 | GDS ---
[f rep st] DISCHARGE SUMMARY DISCHARGE DIAGNOSES: Include: 1. Transient ischemic attack. 2. Low pressure glaucoma. 3. History of previous cardiovascular/transient ischemic attack. HISTORY OF PRESENT ILLNESS: A 71-year-old female who presents with left arm numbness and weakness. For details of patient's initial presentation, please see the history and physical dated 09/30/2016 . CONSULTATIVE SERVICES: Include Neurology. PROCEDURES: 09/30/2016, patient had a noncontrast CT of the head that showed no acute intracranial findings. HOSPITAL COURSE: By issue: Transient recurrent left-sided weakness and numbness. Patient had pres ented in the 24 hours prior to this presentation with similar complaints, had resolution of her symp toms, and was discharged with recommendation for outpatient followup with both the primary care phys rubi and the neurologist. The patient returned home that evening, had recurrence of symptoms, and therefore re-presented to the hospital. Imaging on her previous hospitalization included echocardio graphy, MRI and MRA, and on this admission, CT of the head, all of which showed no acute findings. Neurology did consult, and recommend the patient be started on full-dose aspirin, as well as a stati n, in addition to her home medications at discharge. So the patient's plan, to discharge and follow up in [facility]. We do recommend, after her evaluation at [facility], that she establish with a primar care provider in [place], and follow with our neurologic team upon return. MEDICATIONS: At the time of disposition, please reference medication reconciliation printed on 09/17. Of note, we are adding full-dose aspirin, as well as a statin to her previous home regimen. FOLLOWUP APPOINTMENTS: Include with [facility] and then to be established, PCP, upon returning to [facility], as well as with Dr. Conway from Neurology. I spent greater than 30 minutes in the planning and coordination of this discharge. /[id number]/MODL
== END 2016-10-01 19:00 | disposition home or self-care (01) ==
LOC: F1N 23:16
PROVIDERS: ADMIT Internal Medicine; ATTEND Hospitalist
DX: G45.9 Transient cerebral ischemic attack, unspecified (principal); H40.9 Unspecified glaucoma; Z86.73 Personal history of transient ischemic attack (TIA), and cerebral infarction without residual deficits
CPT/HCPCS: 70450; 92523; 93005; 99285; G0378; G9165; G9166; G0480